=== PATIENT | male | born 1955 | race Two or more races ===

== ENCOUNTER 2020-05-12 08:25 | Emergency (ER) | payer MEDICARE ==
[~2020-05-12] VITALS: Ht 177.8 cm; Wt 73.0 kg
[2020-05-12] MEDS ORDERED: IV NORMAL SALINE 1000ML BAG 1,000 ML IV ONE (09:00)
[2020-05-12 09:19] LABS: BILIRUBIN,URINE SMALL (NEG); CLARITY,URINE CLOUDY; COLOR,URINE ORANGE; NITRITE,URINE POSITIVE (NEG); PH,URINE 5.5 (<5.0-8.0); PROTEIN,URINE 30 mg/dL (NEG-TRACE)
[2020-05-12 09:32] LABS: CALCIUM 8.4 mg/dL (8.5-10.1); CREATININE 1.1 mg/dL (0.7-1.3); GFR 67.2; POTASSIUM 4.3 mmol/L (3.5-5.1)
[2020-05-12 09:36] LABS: BASO # 0.1 x10^3/uL (0.0-0.2); BASO % 0 % (0-3); EOS % 0 % (0-3); HEMATOCRIT 39.1 % (39.0-53.0); HEMOGLOBIN 13.7 g/dL (13.0-17.5); LYMPH # 0.9 x10^3/uL (1.0-4.8); LYMPH % 6 % (24-48); MEAN CORPUSCULAR HEMOGLOBIN 30 pg (25-35); MEAN CORPUSCULAR HGB CONC 35 g/dL (31-37); MEAN CORPUSCULAR VOLUME 86 fL (79-100); MONO # 0.8 x10^3/uL (0.0-1.1); MONO % 6 % (0-9); NEUT # 12.3 x10^3/uL (1.8-7.7); NEUT % 87 % (31-73); PLATELET COUNT 152 x10^3/uL (140-400); RED BLOOD COUNT 4.55 x10^6/uL (4.30-5.70); RED CELL DISTRIBUTION WIDTH 13.2 % (11.5-14.5); WHITE BLOOD COUNT 14.1 x10^3/uL (4.0-11.0)
[2020-05-12 09:38] LABS: ALBUMIN 3.2 g/dL (3.4-5.0); ALBUMIN/GLOBULIN RATIO 0.8 (1.0-1.7); MAGNESIUM 1.1 mg/dL (1.8-2.4); TOTAL BILIRUBIN 2.3 mg/dL (0.2-1.0); TOTAL PROTEIN 7.3 g/dL (6.4-8.2)
[2020-05-12 09:51] LABS: BACTERIA,URINE MANY /HPF (0-FEW); RBC,URINE TNTC /HPF (0-2); WBC,URINE >40 /HPF (0-4)
[2020-05-12] MEDS ORDERED: MAGNESIUM SULFATE 2GM 50 ML IV ONE (10:00)
[2020-05-12] MEDS ORDERED: cefTRIAXone IV Push 1 GM VIAL. IVP ONE (10:00)
[2020-05-12 10:48] LABS: % BANDS 4 % (0-9); % LYMPHS 4 % (24-48); % MONOS 4 % (0-10); % SEGS 88 % (35-66); PLT ESTIMATE ADEQUATE (ADEQUATE)
[2020-05-12 10:49] LABS: POLYCHROMASIA SLIGHT; TOXIC GRANULATION SLIGHT
--- NOTE | 2020-05-12 11:08 | RAD ---
Examination: CT ABDOMEN PELVIS WO CONTRAST History: LOWER ABDOMINAL PAIN, PELVIC PAIN / Comparison/Correlation: None Findings: Examination of the abdomen and pelvis were obtained without contrast. Sagittal and coronal reformatted were provided. Bibasilar linear atelectasis is present. Ascending aortic diameter 4.1 cm present. The ascending thoracic aortic diameter 2.7 cm noted. Scattered coronary arterial calcifications identified. Liver and spleen are unremarkable. Surgical clips are noted about the right upper quadrant. Cholecystectomy noted. Retroaortic left renal vein is present. Numerous bilateral renal cysts compatible with polycystic kidney disease noted. Some of them are obtained density at the expected). Multiple bilateral renal calculi are present and small in size. No [place] hydronephrosis. Right iliac fossa renal transplant is present. Fluid collection with surrounding calcifications present superior to the renal transplant present in old seroma or old hematoma and measures up to 12 cm in diameter. Tubular shaped fluid collection is present posterior to the [place] left kidney with surrounding calcification without inflammatory findings. This measures up to 3.4 cm in diameter. Moderate quantity of stool in the colon is present. Mild diverticulosis. Appendix is not identified. No inflammatory change about the cecum. No bowel obstruction or extraluminal gas. The urinary bladder is unremarkable. Prostatomegaly is present with the prostate gland measuring 6.2 cm transverse. L4-5 disc space narrowing is significant with concentric disc bulge. Transitional L5 vertebra. Spinal canal stenosis at L4-5 is mild to moderate in extent. No significant lordosis of the lumbar spine. Impression: Right iliac fossa renal transplant is unremarkable with no hydronephrosis. Polycystic kidney disease. Multiple nonobstructive calculi involving the kidneys. Old seroma or old hematoma superior to the right iliac fossa transplant. Prostatomegaly. Ascending aortic ectasia is partially seen. Diverticulosis. No acute diverticulitis identified. PQRS Compliance Statement: One or more of the following individualized dose reduction techniques were utilized for this examination: 1. Automated exposure control 2. Adjustment of the mA and/or kV according to patient size 3. Use of iterative reconstruction technique Electronically signed by: Berry Barrios MD (05/12/2020 11:06 AM) [id number]
[2020-05-12] MEDS ORDERED: TAMS0.4C97 PO (11:52)
[2020-05-12] MEDS ORDERED: CEFD300C PO (11:52)
--- NOTE | 2020-05-12 11:52 | PHYS DOC ---
Past Medical History Past Medical History: Other Additional Past Medical Histor: liver and kidney transplant Past Surgical History: Appendectomy Additional Past Surgical Histo: liver and kidney transplant (did not remove kidneys) inguinal hernia Smoking Status: Never Smoker Alcohol Use: None General Adult EDM: Chief Complaint: URINARY RETENTION HPI: HPI: Patient is a 64 year old male who presented to ER due to pelvic pain, lower abdominal pain, pain with urination, decreased urination. Symptoms have been going on for 2 days. Patient went to see his doctor yesterday, diagnosed with UTI. Patient was put on cefdinir 300 mg twice a day for 7 days. Patient took 2 doses of the antibiotic already. Patient woke up this morning with more pain with urination, when he sit on his buttocks, he has pain in his pelvic area. So he came here for evaluation. Patient denies any fever. Patient has history of kidney transplant and liver transplant. Review of Systems: Review of Systems: Constitutional: Denies fever or chills. [] Eyes: Denies change in visual acuity. [] HENT: Denies nasal congestion or sore throat. [] Respiratory: Denies cough or shortness of breath. [] Cardiovascular: Denies chest pain or edema. [] GI: Positive for lower abdominal pain, no nausea, vomiting, bloody stools or diarrhea. [] : positive for dysuria, frequency and urgency. Musculoskeletal: Denies back pain or joint pain. [] Integument: Denies rash. [] Neurologic: Denies headache, focal weakness or sensory changes. [] Endocrine: Denies polyuria or polydipsia. [] Lymphatic: Denies swollen glands. [] Psychiatric: Denies depression or anxiety. [] Heart Score: Risk Factors: Risk Factors: DM, Current or recent (<one month) smoker, HTN, HLP, family history of CAD, obesity. Risk Scores: Score 0 - 3: 2.5% MACE over next 6 weeks - Discharge Home Score 4 - 6: 20.3% MACE over next 6 weeks - Admit for Clinical Observation Score 7 - 10: 72.7% MACE over next 6 weeks - Early Invasive Strategies Current Medications: Current Medications Medications (Trade) Dose Ordered Sig/Garrett Start Time Stop Time Status Last Admin Dose Admin Ceftriaxone Sodium (Rocephin) 1 gm 1X ONCE 05/12/20 10:00 05/12/20 10:02 DC 05/12/20 10:12 1 GM Magnesium Sulfate 50 ml @ 25 mls/hr 1X ONCE 05/12/20 10:00 05/12/20 11:59 05/12/20 10:12 25 MLS/HR Sodium Chloride 1,000 ml @ 1,000 mls/hr 1X ONCE 05/12/20 09:00 05/12/20 09:59 DC 05/12/20 09:14 1,000 MLS/HR Tamsulosin HCl (Flomax) 0.4 mg 1X ONCE 05/12/20 12:00 05/12/20 12:01 Allergies: Allergies: Allergies Coded Allergies Type Severity Reaction Last Updated Verified No Known Drug Allergies 05/12/20 No Physical Exam: PE: Constitutional: Well developed, well nourished, no acute distress, non-toxic appearance. [] HENT: Normocephalic, atraumatic, bilateral external ears normal, oropharynx moist, no oral exudates, nose normal. [] Eyes: PERRLA, EOMI, conjunctiva normal, no discharge. [] Neck: Normal range of motion, no tenderness, supple, no stridor. [] Cardiovascular:Heart rate regular rhythm, no murmur [] Lungs & Thorax: Bilateral breath sounds clear to auscultation [] Abdomen: Bowel sounds normal, soft, no tenderness, no masses, no pulsatile masses. EXAM: UNCIRCUMSIZED PENIS, NO SWELLING, NO SCROTAL SWELLING OR TENDER, NO RASH, NO HERNIA. Skin: Warm, dry, no erythema, no rash. [] Back: No tenderness, no CVA tenderness. [] Extremities: No tenderness, no cyanosis, no clubbing, ROM intact, no edema. [] Neurologic: Alert and oriented X 3, normal motor function, normal sensory function, no focal deficits noted. [] Psychologic: Affect normal, judgement normal, mood normal. [] Current Patient Data: Labs: Laboratory Tests Test 05/12/20 08:50 05/12/20 09:16 Urine Collection Type Unknown Urine Color [place] Urine Clarity Cloudy Urine pH 5.5 (<5.0-8.0) Urine Specific [place] 1.025 (1.000-1.030) Urine Protein 30 mg/dL (NEG-TRACE) Urine Glucose (UA) Negative mg/dL (NEG) Urine Ketones (Stick) Trace mg/dL (NEG) Urine Blood Small (NEG) Urine Nitrite Positive (NEG) Urine Bilirubin Small (NEG) Urine Urobilinogen Dipstick 1.0 mg/dL (0.2 mg/dL) Urine Leukocyte Esterase Large (NEG) Urine RBC Tntc /HPF (0-2) Urine WBC >40 /HPF (0-4) Urine Bacteria Many /HPF (0-FEW) White Blood Count 14.1 x10^3/uL (4.0-11.0) H Red Blood Count 4.55 x10^6/uL (4.30-5.70) Hemoglobin 13.7 g/dL (13.0-17.5) Hematocrit 39.1 % (39.0-53.0) Mean Corpuscular Volume 86 fL (79-100) Mean Corpuscular Hemoglobin 30 pg (25-35) Mean Corpuscular Hemoglobin Concent 35 g/dL (31-37) Red Cell Distribution Width 13.2 % (11.5-14.5) Platelet Count 152 x10^3/uL (140-400) Neutrophils (%) (Auto) 87 % (31-73) H Lymphocytes (%) (Auto) 6 % (24-48) L Monocytes (%) (Auto) 6 % (0-9) Eosinophils (%) (Auto) 0 % (0-3) Basophils (%) (Auto) 0 % (0-3) Neutrophils # (Auto) 12.3 x10^3/uL (1.8-7.7) H Lymphocytes # (Auto) 0.9 x10^3/uL (1.0-4.8) L Monocytes # (Auto) 0.8 x10^3/uL (0.0-1.1) Eosinophils # (Auto) 0.0 x10^3/uL (0.0-0.7) Basophils # (Auto) 0.1 x10^3/uL (0.0-0.2) Segmented Neutrophils % 88 % (35-66) H Band Neutrophils % 4 % (0-9) Lymphocytes % 4 % (24-48) L Monocytes % 4 % (0-10) Toxic Granulation Slight Dohle Bodies Few Platelet Estimate Adequate (ADEQUATE) Large Platelets Occ Polychromasia Slight Sodium Level 125 mmol/L (136-145) L Potassium Level 4.3 mmol/L (3.5-5.1) Chloride Level 92 mmol/L (98-107) L Carbon Dioxide Level 26 mmol/L (21-32) Anion Gap 7 (6-14) Blood Urea Nitrogen 24 mg/dL (8-26) Creatinine 1.1 mg/dL (0.7-1.3) Estimated GFR (Cockcroft-Gault) 67.2 BUN/Creatinine Ratio 22 (6-20) H Glucose Level 130 mg/dL (70-99) H Calcium Level 8.4 mg/dL (8.5-10.1) L Magnesium Level 1.1 mg/dL (1.8-2.4) L Total Bilirubin 2.3 mg/dL (0.2-1.0) H Aspartate Amino Transferase (AST) 24 U/L (15-37) Alanine Aminotransferase (ALT) 32 U/L (16-63) Alkaline Phosphatase 76 U/L (46-116) Total Protein 7.3 g/dL (6.4-8.2) Albumin 3.2 g/dL (3.4-5.0) L Albumin/Globulin Ratio 0.8 (1.0-1.7) L Laboratory Tests 05/12/20 09:16 Laboratory Tests 05/12/20 09:16 Vital Signs: Vital Signs Date Time Temp Pulse Resp B/P (MAP) Pulse Ox O2 Delivery O2 Flow Rate FiO2 05/12/20 09:47 76 17 95 05/12/20 08:53 97.8 98/58 (71) Room Air 97.8 EKG: EKG: [] Radiology/Procedures: Radiology/Procedures: [][facility] [address] [place] [address] IMAGING REPORT Signed PATIENT: JAVON LONDON ACCOUNT: [id number] : 1955 LOCATION: ER AGE: 64 SEX: M EXAM STATUS: REG ER ORD. PHYSICIAN: HERBERT FOX DO REASON: LOWER ABDOMINAL PAIN, PELVIC PAIN PROCEDURE: CT ABDOMEN PELVIS WO CONTRAST Examination: CT ABDOMEN PELVIS WO CONTRAST History: LOWER ABDOMINAL PAIN, PELVIC PAIN / Comparison/Correlation: None Findings: Examination of the abdomen and pelvis were obtained without contrast. Sagittal and coronal reformatted were provided. Bibasilar linear atelectasis is present. Ascending aortic diameter 4.1 cm present. The ascending thoracic aortic diameter 2.7 cm noted. Scattered coronary arterial calcifications identified. Liver and spleen are unremarkable. Surgical clips are noted about the right upper quadrant. Cholecystectomy noted. Retroaortic left renal vein is present. Numerous bilateral renal cysts compatible with polycystic kidney disease noted. Some of them are obtained density at the expected). Multiple bilateral renal calculi are present and small in size. No [place] hydronephrosis. Right iliac fossa renal transplant is present. Fluid collection with surrounding calcifications present superior to the renal transplant present in old seroma or old hematoma and measures up to 12 cm in diameter. Tubular shaped fluid collection is present posterior to the [place] left kidney with surrounding calcification without inflammatory findings. This measures up to 3.4 cm in diameter. Moderate quantity of stool in the colon is present. Mild diverticulosis. Appendix is not identified. No inflammatory change about the cecum. No bowel obstruction or extraluminal gas. The urinary bladder is unremarkable. Prostatomegaly is present with the prostate gland measuring 6.2 cm transverse. L4-5 disc space narrowing is significant with concentric disc bulge. Transitional L5 vertebra. Spinal canal stenosis at L4-5 is mild to moderate in extent. No significant lordosis of the lumbar spine. Impression: Right iliac fossa renal transplant is unremarkable with no hydronephrosis. Polycystic kidney disease. Multiple nonobstructive calculi involving the kidneys. Old seroma or old hematoma superior to the right iliac fossa transplant. Prostatomegaly. Ascending aortic ectasia is partially seen. Diverticulosis. No acute diverticulitis identified. PQRS Compliance Statement: One or more of the following individualized dose reduction techniques were utilized for this examination: 1. Automated exposure control 2. Adjustment of the mA and/or kV according to patient size 3. Use of iterative reconstruction technique Electronically signed by: Berry Cochran MD (05/12/2020 11:06 AM) [id number] DICTATED and SIGNED BY: BERRY COCHRAN MD DATE: 05/12/20 1106 Course & Med Decision Making: Course & Med Decision Making Pertinent Labs and Imaging studies reviewed. (See chart for details) Bladder scan did not reveal much urine in his bladder, patient was able to urinate a little bit in the ER. Patient is a 64-year-old male who was evaluated in the ER due to pain with urination, pain in the lower pelvic area. Patient CT scan did not show any acute problem, his lab work showed that he has evidence of UTI. Patient was put on Cefdinir 300 mg twice daily by his doctor yesterday for 7 days, he only had 2 doses. Due to his history of kidney transplant, this physician recommended the patient need to be admitted to hospital for IV antibiotic, however patient declined admission. Patient would like to go home, he said he will follow-up with his family doctor for referral to a urologist. Patient will need at least 14 days of antibiotic. Therefore he was discharged home with a prescription for Cefdinir 300 twice a day for 7 more days and Flomax. Dragon Disclaimer: Dragon Disclaimer: This electronic medical record was generated, in whole or in part, using a voice recognition dictation system. Departure Departure Impression: Primary Impression: UTI (urinary tract infection) Disposition: HOME, SELF-CARE Condition: IMPROVED Referrals: UNKNOWN PCP NAME (PCP) please follow up with urologist for outpatient evaluation. PLEASE CALL [facility]OLOGY [facility] FOR FOLLOW UP THIS WEEK. The phone number is [phone] Patient Instructions: Urinary Tract Infection Additional Instructions: Thank you for visiting our Emergency Department. We appreciate you trusting us with your care. If any additional problems come up don't hesitate to return to visit us. Please follow up with your primary care provider so they can plan additional care if needed and know about the problem that you had. If symptoms worsen come back to the Emergency Department. Any concerning symptoms that start such as chest pain, shortness of air, weakness or numbness on one side of the body, running high fevers or any other concerning symptoms return to the ER. Scripts Cefdinir (CEFDINIR) 300 Mg Capsule 1 CAP PO BID, #14 CAP Prov: HERBERT FOX DO 05/12/20 Tamsulosin Hcl (FLOMAX) 0.4 Mg Cap.er.24h 1 CAP PO DAILY for 10 Days, #10 CAP 11 Refills Prov: HERBERT FOX DO 05/12/20 Justicifation of Admission Dx: Justifications for Admission: Justification of Admission Dx: N/A HERBERT FOX DO May 12, 2020 11:52
[2020-05-12 11:56] VITALS: BP 121/68
[2020-05-12] MEDS ORDERED: TAMSULOSIN 0.4 MG CAP.ER.24H. PO ONE (12:00)
== END 2020-05-12 12:32 | disposition home or self-care (01) ==
LOC: ER 08:25
DX: N39.0 Urinary tract infection, site not specified (principal); Z90.89 Acquired absence of other organs; Z98.890 Other specified postprocedural states; Z94.0 Kidney transplant status
CPT/HCPCS: 36415; 74176; 80053; 81001; 83735; 85007; 85025; 87086; 96361; 96365; 96366; 96375; 99284; J0696; J3475; J7030